=== PATIENT | female | born 1995 | race Two or more races ===

== ENCOUNTER 2019-12-15 06:25 | Emergency (ER) | payer OTHER ==
[~2019-12-15] VITALS: Ht 172.7 cm; Wt 68.0 kg
[2019-12-15] MEDS ORDERED: SODIUM CHLORIDE 0.9% 1,000 ML IV ONE (08:15)
[2019-12-15] MEDS ORDERED: HYDROmorphone HCL 2 MG/ML VL IM ONE (08:15)
[2019-12-15] MEDS ORDERED: MIDAZOLAM HCL 5 MG/ML-1ML VIAL IV ONE (08:15)
[2019-12-15] MEDS ORDERED: ETOMIDATE (2MG/ML) 20ML VIAL IV ONE (08:45)
[2019-12-15] MEDS ORDERED: TETANUS-DIPTH-ACEL PERTUSSIS 0.5ML SYR Tdap IM ONE (10:15)
[2019-12-15 11:00] VITALS: BP 99/53
== END 2019-12-15 12:37 | disposition home or self-care (01) ==
LOC: ER 06:25 → EDBD 06:25 → ER 12:37
DX: S62.102A Fracture of unspecified carpal bone, left wrist, initial encounter for closed fracture (principal); S52.615A Nondisplaced fracture of left ulna styloid process, initial encounter for closed fracture; S00.531A Contusion of lip, initial encounter; V49.9XXA Car occupant (driver) (passenger) injured in unspecified traffic accident, initial encounter; Y93.89 Activity, other specified; Y92.89 Other specified places as the place of occurrence of the external cause; Y99.8 Other external cause status
CPT/HCPCS: 25605; 73100; 73110; 90471; 90715; 96360; 96372; 99285; J1170; J2250; 96361; 96374